=== PATIENT | female | born 1985 | race Caucasian/White ===

== ENCOUNTER 2025-01-07 02:24 | Emergency (ER) | payer OTHER, MEDICAID ==
[~2025-01-07] VITALS: Ht 175.3 cm; Wt 75.7 kg
[2025-01-07 02:30] VITALS: TEMP 98.2
[2025-01-07 02:56] LABS: PLATELET COUNT (AUTO) 259 K/uL (150-450); RED BLOOD CELL COUNT(AUTO) 3.98 MIL/uL (4.0-5.2); RED CELL DISTRIBUTION WIDTH 12.9 % (11.5-15.0); WHITE BLOOD COUNT (AUTO) 8.6 K/uL (4.3-11.0)
[2025-01-07 03:04] LABS: CALCIUM, SERUM 9.5 mg/dL (8.5-10.1); CREATININE 0.7 mg/dL (0.6-1.3); SODIUM SERUM 143 mmol/L (136-145); UREA NITROGEN, BLOOD 10 mg/dL (7-18)
[2025-01-07 03:10] LABS: ASPARTATE AMINOTRANSFERASE 28 U/L (15-37); TOTAL PROTEIN, SERUM 7.7 g/dL (6.4-8.2)
[2025-01-07] MEDS ORDERED: OLANZAPINE 10 MG VIAL IM ONE (03:29)
[2025-01-07] MEDS: LORAZEPAM INJ 2 MG/ML VIAL IM ONE ×2 (03:37→16:20)
[2025-01-07] MEDS: OLANZAPINE 10 MG VIAL IM ONE (03:37)
[2025-01-07 04:51] LABS: APPEARANCE,URINE CLEAR (CLEAR); BLOOD, URINE NEGATIVE Ery/uL (NEGATIVE); LEUKOCYTE ESTERASE ,URINE NEGATIVE (NEGATIVE); NITRITE, URINE NEGATIVE (NEGATIVE); UGLUCOSE NEGATIVE (NEGATIVE)
[2025-01-07 05:05] LABS: ADD URINE CULTURE NO; SQUAMOUS EPITHELIAL CELL,UR 0-2 /HPF (None Seen)
[2025-01-07 05:06] LABS: BARBITURATE, URINE NEGATIVE (NEGATIVE); BENZODIAZEPINE, URINE NEGATIVE (NEGATIVE); CANNABINOID, URINE NEGATIVE (NEGATIVE); COCCAINE, URINE NEGATIVE (NEGATIVE); OPIATE, URINE NEGATIVE (NEGATIVE)
[2025-01-07 05:08] LABS: AMPHETAMINE, URINE POSITIVE (NEGATIVE)
[2025-01-07 09:54] LABS: PREGNANCY TEST URINE QUAL NEGATIVE (NEGATIVE)
[2025-01-07 14:00] VITALS: BP 106/89; O2SAT 98
== END 2025-01-07 16:20 ==
LOC: ER 02:36
DX: R45.1 Restlessness and agitation (principal); F20.0 Paranoid schizophrenia; Z88.0 Allergy status to penicillin; Z91.148 Patient's other noncompliance with medication regimen for other reason
CPT/HCPCS: 99285; 96372; 85025; 80048; 80076; 84703; 36415; 84702; 80143; 80307; 81001; J3490